=== PATIENT | female | born 1945 | race Caucasian/White ===

== ENCOUNTER 2017-02-05 15:42 | Emergency (ER) | payer MEDICARE, OTHER ==
--- NOTE | ~2017-02-05 | CR172 ---
[facility]. [facility] A Service of [facility] & [facility] RADIOLOGY TEXT RESULTS PATIENT: LOGAN SMITH LOCATION: SED : 47 UNIT #: [id number] AGE: [address]: MAGGIE BARRIGA SEX: F ORDER DR: [id number] [place] [id number] E MR#: [id number] Acc #: [id number] NAME: LOGAN SMITH : 1945 SEX: F STUDY DATE/TIME: 02/05/2017 16:49 UNIT: SED ROOM: STUDY DESCRIPTION: CR Knee 3 Views Lt Attending Physician: Maggie Barriga Aprn Ordering Physician: Maggie Barriga Aprn Primary Care Physician: Elier Watkins M.D. MEDICAL IMAGING REPORT This report is preliminary unless electronic signature is present. EXAM Left knee, 3 views, 02/05/2017. HISTORY Left knee pain for 1 week. No injury. COMPARISON 02/25/2009 FINDINGS Chondrocalcinosis with tricompartmental degenerative change and moderate to severe medial compartment narrowing. The medial compartment narrowing has progressed since the previous study. No fracture or joint effusion. IMPRESSION Degenerative changes, as described, which have worsened, compared with the previous study in 2008. No acute findings. Dictated by... Rosalino Pereira M.D. THIS IS AN ELECTRONICALLY VERIFIED REPORT Rosalino Pereira M.D. at 02/06/2017 8:17 AM MAYRA/james TD: 02/05/2017 19:24 JOB #: [id number] MEDICAL IMAGING REPORT Page 1 of 1
--- NOTE | ~2017-02-05 | CR252 ---
[facility]. [facility] A Service of [facility] & [facility] RADIOLOGY TEXT RESULTS PATIENT: LOGAN SMITH LOCATION: SED : 47 UNIT #: [id number] AGE: [address]: MAGGIE BARRIGA SEX: F ORDER DR: [id number] [place] [id number] E MR#: [id number] Acc #: [id number] NAME: LOGAN SMITH : 1945 SEX: F STUDY DATE/TIME: 02/05/2017 16:49 UNIT: SED ROOM: STUDY DESCRIPTION: CR Tibia and Fibula 2 Views Lt Attending Physician: Maggie Barriga Aprn Ordering Physician: Maggie Barriga Aprn Primary Care Physician: Elier Watkins M.D. MEDICAL IMAGING REPORT This report is preliminary unless electronic signature is present. EXAM Left tibia-fibula, 2 views. INDICATIONS Left leg pain for 1 week. No injury. COMPARISON No comparisons. FINDINGS Degenerative changes of the knee. Please refer to separately dictated knee x-ray for complete details. No evidence for acute fracture. No evidence for dislocation. IMPRESSION No acute findings. Extensive degenerative changes of the knee. Dictated by... Rosalino Pereira M.D. THIS IS AN ELECTRONICALLY VERIFIED REPORT Rosalino Pereira M.D. at 02/06/2017 8:17 AM MAYRA/joe TD: 02/05/2017 19:42 JOB #: [id number] MEDICAL IMAGING REPORT Page 1 of 1
[2017-02-05] MEDS ORDERED: VITAMIN D2000 UNIT (15:54)
[2017-02-05] MEDS ORDERED: PRINIVIL10 MG (15:54)
[2017-02-05] MEDS ORDERED: PRILOSEC (15:55)
[2017-02-05] MEDS ORDERED: METOPROLOL SUCC25 MG (15:55)
[2017-02-05] MEDS ORDERED: CLOPIDOGREL75 MG (15:55)
[2017-02-05] MEDS ORDERED: FOSAMAX70 MG (15:55)
== END 2017-02-05 17:38 | disposition home or self-care (01) ==
LOC: SED 15:42
DX: M25.562 Pain in left knee (principal); I25.2 Old myocardial infarction; Z86.73 Personal history of transient ischemic attack (TIA), and cerebral infarction without residual deficits; Z79.899 Other long term (current) drug therapy
CPT/HCPCS: 29530; 73562; 73590; 99283

== ENCOUNTER → 2017-03-23 | Outpatient (CLI) | payer MEDICARE, OTHER ==
[~2017-03-23] MED LIST: CLOPIDOGREL75 MG; FOSAMAX70 MG; METOPROLOL SUCC25 MG; PRILOSEC; PRINIVIL10 MG; VITAMIN D2000 UNIT
[2017-03-23 11:52] LABS: HEMATOCRIT 39.7 % (35.0-45.0); HEMOGLOBIN 12.9 gm/dL (12.0-16.0); MEAN CELL VOLUME 75.9 FL (83-96); MEAN CORPUSCULAR HEMOGLOBIN 24.6 PG (28-34); MEAN CORPUSCULAR HGB CONC 32.5 g/dL (30-36); MEAN PLATELET VOLUME 9.4 FL (6.5-11.5); RED BLOOD COUNT 5.23 X10e (3.90-5.30); RED CELL DISTRIBUTION WIDTH 17.4 % (11.0-15.5); WHITE BLOOD COUNT 7.6 X10e3 (4.0-10.5)
[2017-03-23 13:26] LABS: ALBUMIN SERUM 4.3 g/dL (3.5-5.0); BILIRUBIN,TOTAL 0.6 mg/dL (0.2-2.0); CALCIUM SERUM 9.1 mg/dL (8.4-10.2); CREATININE SERUM 0.5 mg/dL (0.6-1.4); GLOM FILT RATE Estimated 98.1 mL/min (>60); POTASSIUM 4.3 mmol/L (3.5-5.1); PROTEIN TOTAL SERUM 7.2 g/dL (6.0-8.3)
== END | disposition home or self-care (01) ==
LOC: SLAB 11:17
PROVIDERS: Internal Medicine
DX: E78.2 Mixed hyperlipidemia (principal); I10 Essential (primary) hypertension; R73.9 Hyperglycemia, unspecified; Z79.899 Other long term (current) drug therapy
CPT/HCPCS: 36415; 80053; 80061; 83036; 85027